=== PATIENT | female | born 1940 | race Caucasian/White ===

== ENCOUNTER → 2017-10-01 | Outpatient (CLI) | payer MEDICARE, OTHER ==
[2017-10-01 11:17] LABS: ADD MAN DIFF? NO
[2017-10-01 11:22] LABS: WHITE BLOOD COUNT 4.9 10^3/ul (4.8-10.8)
[2017-10-01 11:22] LABS: BASOPHIL # 0.1 10^3/ul (0.0-0.1); EOSINOPHILS % 0.8 % (0.0-7.0); HEMATOCRIT 36.6 % (37.0-47.0); LYMPHOCYTES # 1.6 10^3/ul (0.8-2.9); LYMPHOCYTES % 32.3 % (15.0-51.0); MEAN CORPUSCULAR HEMOGLOBIN 29.2 pg (29.0-33.0); MEAN CORPUSCULAR HGB CONC 32.8 g/dl (32.0-37.0); MEAN CORPUSCULAR VOLUME 89.1 fl (82.0-101.0); MEAN PLATELET VOLUME 9.9 fl (7.4-10.4); MONOCYTE # 0.4 10^3/ul (0.3-0.9); MONOCYTES % 8.6 % (0.0-11.0); NEUTROPHIL # 2.8 10^3/ul (1.6-7.5); NEUTROPHILS % 57.3 % (39.0-77.0); PLATELET COUNT 258 10^3/UL (140-415); RED BLOOD COUNT 4.11 10^6/ul (4.20-5.40); RED CELL DISTRIBUTION WIDTH 12.5 % (11.5-14.5)
[2017-10-01 11:23] LABS: ADD UMIC NO; UR ASCORBIC ACID NEGATIVE (NEGATIVE); UR BILIRUBIN (Dip) NEGATIVE (NEGATIVE); UR BLOOD (Dip) NEGATIVE (NEGATIVE); UR CLARITY CLEAR (CLEAR); UR COLOR YELLOW (YELLOW); UR GLUCOSE (Dip) NEGATIVE (NEGATIVE); UR KETONES (Dip) NEGATIVE (NEGATIVE); UR LEUKOCYTE ESTERASE (Dip) NEGATIVE Leu/ul (NEGATIVE); UR NITRITE (Dip) NEGATIVE (NEGATIVE); UR SPECIFIC GRAVITY (Dip) 1.013 (1.003-1.030); UR TOTAL PROTEIN (Dip) NEGATIVE (NEGATIVE); UR UROBILINOGEN (Dip) NEGATIVE (NEGATIVE)
[2017-10-01 11:36] LABS: HEMOGLOBIN A1C 5.5 % (0-5.9)
[2017-10-01 11:50] LABS: ALANINE AMINOTRANSFERASE 27 IU/L (13-69); ALBUMIN 4.5 g/dl (3.3-4.9); ALBUMIN/GLOBULIN RATIO 1.55; ALKALINE PHOSPHATASE 67 IU/L (42-121); ANION GAP 15 (8-16); ASPARTATE AMINO TRANSFERASE 18 IU/L (15-46); BILIRUBIN,INDIRECT 0.1 mg/dl (0-1.1); BILIRUBIN,TOTAL 0.1 mg/dl (0.2-1.3); BLOOD UREA NITROGEN 18 mg/dl (7-20); CALCIUM 9.6 mg/dl (8.4-10.2); CARBON DIOXIDE 29 mmol/L (21-31); CHLORIDE 106 mmol/L (97-110); CHOL/HDL RATIO 2.6 RATIO; CHOLESTEROL 166 mg/dl (100-200); CREATININE 0.95 mg/dl (0.44-1.00); GLUCOSE 101 mg/dl (70-220); HDL CHOLESTEROL 63 mg/dl (33-92); LDL CHOLESTEROL,CALCULATED 67 mg/dl; SODIUM 146 mmol/L (135-144); TOTAL PROTEIN 7.4 g/dl (6.1-8.1); TRIGLYCERIDES 178 mg/dl (0-149)
== END | disposition home or self-care (01) ==
LOC: HKI 10:48
DX: N39.0 Urinary tract infection, site not specified (principal); D64.9 Anemia, unspecified; E03.9 Hypothyroidism, unspecified; E78.5 Hyperlipidemia, unspecified
CPT/HCPCS: 80053; 80061; 81003; 83036; 84436; 84443; 85025; 85651

== ENCOUNTER 2017-11-03 12:26 | Emergency (ER) | payer MEDICARE, OTHER ==
[2017-11-03] MEDS: SOD CHLORIDE 0.9% 1,000 ML IV (13:21)
[2017-11-03] MEDS: ONDANSETRON 4 MG INJ IV (13:21)
[2017-11-03] MEDS: KETOROLAC 15 MG INJ IV (13:21)
[2017-11-03 13:49] LABS: ADD MAN DIFF? NO
[2017-11-03 13:52] LABS: WHITE BLOOD COUNT 6.9 10^3/ul (4.8-10.8)
[2017-11-03 13:52] LABS: BASOPHILS % 0.6 % (0.0-2.0); EOSINOPHILS % 0.4 % (0.0-7.0); HEMATOCRIT 35.7 % (37.0-47.0); HEMOGLOBIN 11.6 g/dl (12.0-16.0); LYMPHOCYTES # 1.8 10^3/ul (0.8-2.9); LYMPHOCYTES % 25.6 % (15.0-51.0); MEAN CORPUSCULAR HEMOGLOBIN 28.6 pg (29.0-33.0); MEAN CORPUSCULAR HGB CONC 32.5 g/dl (32.0-37.0); MEAN CORPUSCULAR VOLUME 87.9 fl (82.0-101.0); MEAN PLATELET VOLUME 10.6 fl (7.4-10.4); MONOCYTE # 0.6 10^3/ul (0.3-0.9); MONOCYTES % 8.6 % (0.0-11.0); NEUTROPHIL # 4.4 10^3/ul (1.6-7.5); NEUTROPHILS % 64.4 % (39.0-77.0); PLATELET COUNT 288 10^3/UL (140-415); RED BLOOD COUNT 4.06 10^6/ul (4.20-5.40); RED CELL DISTRIBUTION WIDTH 12.1 % (11.5-14.5)
[2017-11-03 14:05] LABS: ADD UMIC NO; UR ASCORBIC ACID NEGATIVE (NEGATIVE); UR BILIRUBIN (Dip) NEGATIVE (NEGATIVE); UR BLOOD (Dip) NEGATIVE (NEGATIVE); UR CLARITY CLEAR (CLEAR); UR COLOR STRAW (YELLOW); UR GLUCOSE (Dip) NEGATIVE (NEGATIVE); UR KETONES (Dip) NEGATIVE (NEGATIVE); UR LEUKOCYTE ESTERASE (Dip) NEGATIVE Leu/ul (NEGATIVE); UR NITRITE (Dip) NEGATIVE (NEGATIVE); UR SPECIFIC GRAVITY (Dip) 1.008 (1.003-1.030); UR TOTAL PROTEIN (Dip) NEGATIVE (NEGATIVE); UR UROBILINOGEN (Dip) NEGATIVE (NEGATIVE)
[2017-11-03 14:11] LABS: ALANINE AMINOTRANSFERASE 19 IU/L (13-69); ALBUMIN 4.7 g/dl (3.3-4.9); ALBUMIN/GLOBULIN RATIO 1.74; ALKALINE PHOSPHATASE 70 IU/L (42-121); ANION GAP 21 (8-16); ASPARTATE AMINO TRANSFERASE 15 IU/L (15-46); BLOOD UREA NITROGEN 15 mg/dl (7-20); CALCIUM 9.9 mg/dl (8.4-10.2); CARBON DIOXIDE 28 mmol/L (21-31); CHLORIDE 105 mmol/L (97-110); CREATININE 0.93 mg/dl (0.44-1.00); GLUCOSE 109 mg/dl (70-220); LIPASE 114 U/L (23-300); POTASSIUM 4.7 mmol/L (3.5-5.1); SODIUM 149 mmol/L (135-144); TOTAL PROTEIN 7.4 g/dl (6.1-8.1)
[2017-11-03 14:24] LABS: TROPONIN-I < 0.012 ng/ml (0.00-0.12)
[2017-11-03] MEDS: ALPRAZOLAM 1 MG TAB PO (16:03)
== END 2017-11-03 16:15 | disposition home or self-care (01) ==
LOC: E/R 12:26
DX: R32 Unspecified urinary incontinence (principal); R29.0 Tetany; I10 Essential (primary) hypertension; E66.9 Obesity, unspecified; Z68.26 Body mass index [BMI] 26.0-26.9, adult
CPT/HCPCS: 36415; 74176; 80053; 81003; 83690; 84484; 85025; 87086; 93005; 96374; 96375; 99285-25

== ENCOUNTER 2018-01-08 20:59 | Emergency (ER) | payer MEDICARE, OTHER ==
[2018-01-08] MEDS: ASPIRIN 325 MG TAB PO (21:18)
[2018-01-08 21:34] LABS: ADD MAN DIFF? NO
[2018-01-08 21:36] LABS: WHITE BLOOD COUNT 5.9 10^3/ul (4.8-10.8)
[2018-01-08 21:36] LABS: BASOPHIL # 0.1 10^3/ul (0.0-0.1); BASOPHILS % 0.9 % (0.0-2.0); EOSINOPHILS # 0.1 10^3/ul (0.0-0.5); HEMATOCRIT 32.8 % (37.0-47.0); HEMOGLOBIN 10.4 g/dl (12.0-16.0); LYMPHOCYTES # 2.3 10^3/ul (0.8-2.9); LYMPHOCYTES % 39.9 % (15.0-51.0); MEAN CORPUSCULAR HEMOGLOBIN 28.3 pg (29.0-33.0); MEAN CORPUSCULAR HGB CONC 31.7 g/dl (32.0-37.0); MEAN CORPUSCULAR VOLUME 89.1 fl (82.0-101.0); MEAN PLATELET VOLUME 10.3 fl (7.4-10.4); MONOCYTE # 0.5 10^3/ul (0.3-0.9); MONOCYTES % 9.2 % (0.0-11.0); NEUTROPHIL # 2.9 10^3/ul (1.6-7.5); NEUTROPHILS % 48.8 % (39.0-77.0); PLATELET COUNT 313 10^3/UL (140-415); RED BLOOD COUNT 3.68 10^6/ul (4.20-5.40); RED CELL DISTRIBUTION WIDTH 13.7 % (11.5-14.5)
[2018-01-08 21:54] LABS: ALANINE AMINOTRANSFERASE 16 IU/L (13-69); ALBUMIN 4.2 g/dl (3.3-4.9); ALKALINE PHOSPHATASE 97 IU/L (42-121); ANION GAP 17 (8-16); ASPARTATE AMINO TRANSFERASE 17 IU/L (15-46); BILIRUBIN,INDIRECT 0.1 mg/dl (0-1.1); BILIRUBIN,TOTAL 0.1 mg/dl (0.2-1.3); BLOOD UREA NITROGEN 16 mg/dl (7-20); CALCIUM 9.5 mg/dl (8.4-10.2); CARBON DIOXIDE 24 mmol/L (21-31); CHLORIDE 110 mmol/L (97-110); CREATININE 0.94 mg/dl (0.44-1.00); GLUCOSE 116 mg/dl (70-220); POTASSIUM 4.5 mmol/L (3.5-5.1); SODIUM 146 mmol/L (135-144); TOTAL PROTEIN 7.2 g/dl (6.1-8.1)
[2018-01-08 21:55] LABS: INR 0.92; PROTIME 12.4 Sec (11.9-14.9)
[2018-01-08 21:56] LABS: PARTIAL THROMBOPLASTIN TIME 28.6 Sec (25.0-35.0)
[2018-01-08 22:09] LABS: B-TYPE NATRIURETIC PEPTIDE 395 PG/ML (0-450)
[2018-01-08 22:14] LABS: TROPONIN-I < 0.012 ng/ml (0.000-0.120)
== END 2018-01-08 23:18 | disposition home or self-care (01) ==
LOC: E/R 20:59
DX: M94.0 Chondrocostal junction syndrome [Tietze] (principal); R00.2 Palpitations; I10 Essential (primary) hypertension
CPT/HCPCS: 36415; 71045; 80053; 83880; 84484; 85025; 85610; 85730; 93005; 99285-25

== ENCOUNTER 2018-01-29 12:59 | Inpatient (IN) | payer MEDICARE, OTHER ==
[2018-01-29 13:27] LABS: ABNORMAL IP MESSAGE 1; HEMATOCRIT 37.9 % (37.0-47.0); HEMOGLOBIN 11.9 g/dl (12.0-16.0); MEAN CORPUSCULAR HEMOGLOBIN 28.5 pg (29.0-33.0); MEAN CORPUSCULAR HGB CONC 31.4 g/dl (32.0-37.0); MEAN CORPUSCULAR VOLUME 90.9 fl (82.0-101.0); MEAN PLATELET VOLUME 10.2 fl (7.4-10.4); PLATELET COUNT 233 10^3/UL (140-415); RED BLOOD COUNT 4.17 10^6/ul (4.20-5.40); RED CELL DISTRIBUTION WIDTH 12.8 % (11.5-14.5)
[2018-01-29 13:27] LABS: WHITE BLOOD COUNT 4.6 10^3/ul (4.8-10.8)
[2018-01-29 13:29] LABS: ADD MAN DIFF? YES; POSITIVE DIFF @See below
[2018-01-29] MEDS: SOD CHLORIDE 0.9% 1,000 ML IV (13:42)
[2018-01-29 13:57] LABS: AMMONIA < 9 umol/l (9-30)
[2018-01-29 14:05] LABS: ANISOCYTOSIS 1+ (0-0); BAND NEUTROPHILS #M 1.3 10^3/ul (0.0-0.6); BAND NEUTROPHILS % (M) 29 % (0-4); LYMPHOCYTES #M 0.2 10^3/ul (0.8-2.9); LYMPHOCYTES % (M) 5 % (15-51); METAMYELOCYTES %M 1 % (0-0); MONOCYTE #M 0.2 10^3/ul (0.3-0.9); MONOCYTES % (M) 5 % (0-11); PLATELET ESTIMATE NORMAL; POLYCHROMASIA 1+ (0-0); REACTIVE LYMPHOCYTES% (M) 1 % (0-0); SEG NEUT #M 2.8 10^3/ul (1.6-7.5); SEGMENTED NEUTROPHILS (M) % 59 % (39-77); SMUDGE%M 1 % (0-0)
[2018-01-29] MEDS: CEFTRIAXONE 1 GM/50 ML (PMX) 50 ML IVPB (14:15)
[2018-01-29 14:31] LABS: ACETAMINOPHEN < 10.0 ug/ml (10.0-30.0)
[2018-01-29] MEDS: AZITHROMYCIN 500MG/NS (PMX) 250 ML IVPB (14:32)
[2018-01-29 14:47] LABS: SALICYLATE < 1.0 mg/dl (5.0-30.0)
[2018-01-29 15:09] LABS: ADD UMIC YES; UR ASCORBIC ACID NEGATIVE (NEGATIVE); UR BACTERIA FEW /HPF (NONE SEEN); UR BILIRUBIN (Dip) NEGATIVE (NEGATIVE); UR BLOOD (Dip) NEGATIVE (NEGATIVE); UR CLARITY SLIGHTLY CLOUDY (CLEAR); UR COLOR YELLOW (YELLOW); UR GLUCOSE (Dip) NEGATIVE (NEGATIVE); UR KETONES (Dip) NEGATIVE (NEGATIVE); UR LEUKOCYTE ESTERASE (Dip) 1+ Leu/ul (NEGATIVE); UR NITRITE (Dip) POSITIVE (NEGATIVE); UR RBC 1 /HPF (0-5); UR SPECIFIC GRAVITY (Dip) 1.025 (1.003-1.030); UR SQUAMOUS EPITHELIAL CELL FEW /HPF (FEW); UR TOTAL PROTEIN (Dip) NEGATIVE (NEGATIVE); UR UROBILINOGEN (Dip) NEGATIVE (NEGATIVE); UR WBC 13 /HPF (0-5)
[2018-01-29 15:12] LABS: ALANINE AMINOTRANSFERASE 23 IU/L (13-69); ALBUMIN/GLOBULIN RATIO 1.37; ALKALINE PHOSPHATASE 66 IU/L (42-121); ANION GAP 16 (8-16); ASPARTATE AMINO TRANSFERASE 24 IU/L (15-46); BILIRUBIN,INDIRECT 0.3 mg/dl (0-1.1); BILIRUBIN,TOTAL 0.3 mg/dl (0.2-1.3); BLOOD UREA NITROGEN 21 mg/dl (7-20); CARBON DIOXIDE 20 mmol/L (21-31); CHLORIDE 109 mmol/L (97-110); CREATININE 0.93 mg/dl (0.44-1.00); GLUCOSE 149 mg/dl (70-220); POTASSIUM 4.3 mmol/L (3.5-5.1); SODIUM 141 mmol/L (135-144); TOTAL PROTEIN 6.9 g/dl (6.1-8.1)
[2018-01-29 15:13] LABS: ETHANOL < 10.0 mg/dl
[2018-01-29 15:24] LABS: TROPONIN-I < 0.012 ng/ml (0.000-0.120)
[2018-01-29 15:35] LABS: AMPHETAMINE/METHAMPHETAMINE Negative (NEGATIVE); BENZODIAZEPINES Positive (NEGATIVE); CANNABINOIDS Negative (NEGATIVE); OPIATES Negative (NEGATIVE)
[2018-01-29 15:37] LABS: BARBITURATES Negative (NEGATIVE); COCAINE Negative (NEGATIVE)
[2018-01-29] MEDS: SODIUM CHLORIDE 0.9% 1L BAG IV* (15:57)
[2018-01-29] MEDS ORDERED: ACETAMINOPHEN 325 MG TAB PO (16:30)
[2018-01-29] MEDS ORDERED: ONDANSETRON 4 MG INJ IV (16:30)
[2018-01-29 16:46] LABS: LACTIC ACID 2.3 mmol/L (0.5-2.0)
[2018-01-29] MEDS ORDERED: ALBUTEROL 0.083% (NEB) 2.5 MG/3 ML AMP HHN (18:30)
[2018-01-29] MEDS: DEXTROSE 5%-0.225% NACL 1,000 ML IV (18:57)
[2018-01-29 19:10] LABS: LACTIC ACID 1.9 mmol/L (0.5-2.0)
[2018-01-29] MEDS: ONDANSETRON 4 MG INJ IV (21:21)
[2018-01-29] MEDS: DOCUSATE SODIUM 250 MG CAP PO (21:21)
[2018-01-29] MEDS: OLANZAPINE 2.5 MG TAB PO (21:25)
[2018-01-29] MEDS: MIRTAZAPINE 15 MG TAB PO (21:26)
[2018-01-29 22:28] LABS: LACTIC ACID 2.1 mmol/L (0.5-2.0)
[2018-01-30] MEDS: PANTOPRAZOLE (EC) 40 MG TAB PO (05:11)
[2018-01-30] MEDS: DEXTROSE 5%-0.225% NACL 1,000 ML IV ×2 (05:11→17:30)
[2018-01-30 06:39] LABS: ABNORMAL IP MESSAGE 1; HEMATOCRIT 31.3 % (37.0-47.0); HEMOGLOBIN 9.7 g/dl (12.0-16.0); MEAN CORPUSCULAR HEMOGLOBIN 28.2 pg (29.0-33.0); MEAN PLATELET VOLUME 10.6 fl (7.4-10.4); PLATELET COUNT 205 10^3/UL (140-415); RED BLOOD COUNT 3.44 10^6/ul (4.20-5.40); RED CELL DISTRIBUTION WIDTH 13.2 % (11.5-14.5)
[2018-01-30 06:46] LABS: ADD MAN DIFF? YES; POSITIVE DIFF @See below
[2018-01-30 07:00] LABS: LACTIC ACID 1.6 mmol/L (0.5-2.0)
[2018-01-30 07:03] LABS: ANION GAP 11 (8-16); BLOOD UREA NITROGEN 18 mg/dl (7-20); CALCIUM 8.7 mg/dl (8.4-10.2); CARBON DIOXIDE 25 mmol/L (21-31); CHLORIDE 111 mmol/L (97-110); CREATININE 0.87 mg/dl (0.44-1.00); GLUCOSE 134 mg/dl (70-220); POTASSIUM 4.7 mmol/L (3.5-5.1); SODIUM 142 mmol/L (135-144)
[2018-01-30 08:10] LABS: ANISOCYTOSIS 2+ (0-0); BAND NEUTROPHILS #M 4.8 10^3/ul (0.0-0.6); BAND NEUTROPHILS % (M) 37 % (0-4); LYMPHOCYTES #M 1.1 10^3/ul (0.8-2.9); LYMPHOCYTES % (M) 9 % (15-51); MICROCYTOSIS 2+ (0-0); MONOCYTE #M 0.9 10^3/ul (0.3-0.9); MONOCYTES % (M) 7 % (0-11); PLATELET ESTIMATE NORMAL; POIKILOCYTOSIS 1+ (0-0); POLYCHROMASIA 3+ (0-0); SEG NEUT #M 6.7 10^3/ul (1.6-7.5); SEGMENTED NEUTROPHILS (M) % 47 % (39-77); SMUDGE%M 2 % (0-0)
[2018-01-30] MEDS: SOLIFENACIN 5 MG TAB PO (08:34)
[2018-01-30] MEDS: DOCUSATE SODIUM 250 MG CAP PO ×2 (08:34→20:38)
[2018-01-30] MEDS: ATENOLOL 50 MG TAB PO (08:35)
[2018-01-30] MEDS: SERTRALINE 50 MG TAB PO (08:35)
[2018-01-30] MEDS: LISINOPRIL 10 MG TAB PO (08:35)
[2018-01-30] MEDS: CEFTRIAXONE 1 GM/50 ML (PMX) 50 ML IVPB (13:00)
[2018-01-30] MEDS: AZITHROMYCIN 500MG/NS (PMX) 250 ML IVPB (13:33)
[2018-01-30] MEDS: traZODone 50 MG TAB PO (17:30)
[2018-01-30] MEDS: traZODone 100 MG TAB PO (20:38)
[2018-01-30] MEDS: OLANZAPINE 2.5 MG TAB PO (20:38)
[2018-01-31] MEDS: DEXTROSE 5%-0.225% NACL 1,000 ML IV ×3 (00:38→22:01)
[2018-01-31] MEDS: traZODone 50 MG TAB PO ×2 (00:50→21:56)
[2018-01-31] MEDS: PANTOPRAZOLE (EC) 40 MG TAB PO (05:13)
[2018-01-31 06:54] LABS: WHITE BLOOD COUNT 11.5 10^3/ul (4.8-10.8)
[2018-01-31 06:54] LABS: HEMATOCRIT 29.5 % (37.0-47.0); HEMOGLOBIN 9.4 g/dl (12.0-16.0); MEAN CORPUSCULAR HEMOGLOBIN 28.7 pg (29.0-33.0); MEAN CORPUSCULAR HGB CONC 31.9 g/dl (32.0-37.0); MEAN CORPUSCULAR VOLUME 90.2 fl (82.0-101.0); MEAN PLATELET VOLUME 11.1 fl (7.4-10.4); PLATELET COUNT 216 10^3/UL (140-415); RED BLOOD COUNT 3.27 10^6/ul (4.20-5.40); RED CELL DISTRIBUTION WIDTH 13.3 % (11.5-14.5)
[2018-01-31 07:14] LABS: ANION GAP 8 (8-16); BLOOD UREA NITROGEN 14 mg/dl (7-20); CALCIUM 8.9 mg/dl (8.4-10.2); CARBON DIOXIDE 27 mmol/L (21-31); CHLORIDE 112 mmol/L (97-110); CREATININE 0.94 mg/dl (0.44-1.00); GLUCOSE 110 mg/dl (70-220); MAGNESIUM 1.8 mg/dl (1.7-2.5); POTASSIUM 3.8 mmol/L (3.5-5.1); SODIUM 143 mmol/L (135-144)
[2018-01-31 07:15] LABS: ADD MAN DIFF? YES; POSITIVE DIFF @See below
[2018-01-31] MEDS: LISINOPRIL 10 MG TAB PO (08:21)
[2018-01-31] MEDS: SERTRALINE 50 MG TAB PO (08:21)
[2018-01-31] MEDS: SOLIFENACIN 5 MG TAB PO (08:21)
[2018-01-31] MEDS: DOCUSATE SODIUM 250 MG CAP PO ×2 (08:21→21:56)
[2018-01-31] MEDS: ATENOLOL 50 MG TAB PO (08:22)
[2018-01-31 09:12] LABS: ANISOCYTOSIS 1+ (0-0); BAND NEUTROPHILS #M 2.1 10^3/ul (0.0-0.6); BAND NEUTROPHILS % (M) 19 % (0-4); EOSINOPHILS % (M) 1 % (0-7); LYMPHOCYTES #M 1.8 10^3/ul (0.8-2.9); LYMPHOCYTES % (M) 16 % (15-51); MICROCYTOSIS 1+ (0-0); MONOCYTE #M 0.2 10^3/ul (0.3-0.9); MONOCYTES % (M) 2 % (0-11); PLATELET ESTIMATE NORMAL; POIKILOCYTOSIS 1+ (0-0); POLYCHROMASIA 3+ (0-0); SEG NEUT #M 7.4 10^3/ul (1.6-7.5); SEGMENTED NEUTROPHILS (M) % 62 % (39-77)
[2018-01-31] MEDS: CEFTRIAXONE 1 GM/50 ML (PMX) 50 ML IVPB (13:25)
[2018-01-31] MEDS: AZITHROMYCIN 500MG/NS (PMX) 250 ML IVPB (14:14)
[2018-01-31] MEDS: OLANZAPINE 2.5 MG TAB PO (21:56)
[2018-01-31] MEDS: traZODone 100 MG TAB PO (22:00)
[2018-02-01] MEDS: traZODone 50 MG TAB PO (00:35)
[2018-02-01] MEDS: PANTOPRAZOLE (EC) 40 MG TAB PO (05:26)
[2018-02-01] MEDS: DEXTROSE 5%-0.225% NACL 1,000 ML IV ×4 (06:30→21:02)
[2018-02-01 08:04] LABS: ADD MAN DIFF? NO
[2018-02-01 08:08] LABS: BASOPHILS % 0.3 % (0.0-2.0); EOSINOPHILS # 0.1 10^3/ul (0.0-0.5); HEMATOCRIT 27.8 % (37.0-47.0); HEMOGLOBIN 8.9 g/dl (12.0-16.0); LYMPHOCYTES # 1.5 10^3/ul (0.8-2.9); LYMPHOCYTES % 16.4 % (15.0-51.0); MEAN CORPUSCULAR HEMOGLOBIN 28.5 pg (29.0-33.0); MEAN CORPUSCULAR VOLUME 89.1 fl (82.0-101.0); MEAN PLATELET VOLUME 10.9 fl (7.4-10.4); MONOCYTE # 0.5 10^3/ul (0.3-0.9); MONOCYTES % 5.5 % (0.0-11.0); NEUTROPHIL # 7.1 10^3/ul (1.6-7.5); NEUTROPHILS % 76.4 % (39.0-77.0); PLATELET COUNT 216 10^3/UL (140-415); RED BLOOD COUNT 3.12 10^6/ul (4.20-5.40); RED CELL DISTRIBUTION WIDTH 13.2 % (11.5-14.5)
[2018-02-01 08:08] LABS: WHITE BLOOD COUNT 9.3 10^3/ul (4.8-10.8)
[2018-02-01 08:12] LABS: POSITIVE DIFF @See below
[2018-02-01] MEDS: DOCUSATE SODIUM 250 MG CAP PO ×2 (08:12→21:02)
[2018-02-01] MEDS: ATENOLOL 50 MG TAB PO (08:12)
[2018-02-01] MEDS: SERTRALINE 50 MG TAB PO (08:12)
[2018-02-01] MEDS: LISINOPRIL 10 MG TAB PO (08:12)
[2018-02-01] MEDS: SOLIFENACIN 5 MG TAB PO (08:12)
[2018-02-01 08:37] LABS: ANION GAP 8 (8-16); BLOOD UREA NITROGEN 8 mg/dl (7-20); CALCIUM 8.7 mg/dl (8.4-10.2); CARBON DIOXIDE 27 mmol/L (21-31); CHLORIDE 111 mmol/L (97-110); CREATININE 0.84 mg/dl (0.44-1.00); GLUCOSE 121 mg/dl (70-220); POTASSIUM 3.4 mmol/L (3.5-5.1); SODIUM 143 mmol/L (135-144)
[2018-02-01] MEDS: CEFTRIAXONE 1 GM/50 ML (PMX) 50 ML IVPB (15:33)
[2018-02-01] MEDS: AZITHROMYCIN 500MG/NS (PMX) 250 ML IVPB (16:09)
[2018-02-01] MEDS: traZODone 100 MG TAB PO (21:02)
[2018-02-01] MEDS: OLANZAPINE 2.5 MG TAB PO (21:02)
[2018-02-02] MEDS: DEXTROSE 5%-0.225% NACL 1,000 ML IV ×3 (02:30→23:12)
[2018-02-02 06:00] LABS: ADD MAN DIFF? NO
[2018-02-02 06:05] LABS: WHITE BLOOD COUNT 7.5 10^3/ul (4.8-10.8)
[2018-02-02 06:05] LABS: BASOPHILS % 0.4 % (0.0-2.0); EOSINOPHILS # 0.1 10^3/ul (0.0-0.5); EOSINOPHILS % 1.9 % (0.0-7.0); HEMATOCRIT 28.8 % (37.0-47.0); HEMOGLOBIN 9.2 g/dl (12.0-16.0); LYMPHOCYTES # 1.5 10^3/ul (0.8-2.9); LYMPHOCYTES % 20.4 % (15.0-51.0); MEAN CORPUSCULAR HEMOGLOBIN 28.5 pg (29.0-33.0); MEAN CORPUSCULAR HGB CONC 31.9 g/dl (32.0-37.0); MEAN CORPUSCULAR VOLUME 89.2 fl (82.0-101.0); MEAN PLATELET VOLUME 10.3 fl (7.4-10.4); MONOCYTE # 0.8 10^3/ul (0.3-0.9); MONOCYTES % 11.1 % (0.0-11.0); NEUTROPHIL # 4.9 10^3/ul (1.6-7.5); NEUTROPHILS % 65.8 % (39.0-77.0); PLATELET COUNT 218 10^3/UL (140-415); RED BLOOD COUNT 3.23 10^6/ul (4.20-5.40); RED CELL DISTRIBUTION WIDTH 13.1 % (11.5-14.5)
[2018-02-02] MEDS: PANTOPRAZOLE (EC) 40 MG TAB PO (06:19)
[2018-02-02] MEDS: LISINOPRIL 10 MG TAB PO (08:41)
[2018-02-02] MEDS: ATENOLOL 50 MG TAB PO (08:42)
[2018-02-02] MEDS: DOCUSATE SODIUM 250 MG CAP PO ×2 (08:42→21:28)
[2018-02-02] MEDS: SOLIFENACIN 5 MG TAB PO (08:42)
[2018-02-02] MEDS: SERTRALINE 50 MG TAB PO (08:42)
[2018-02-02] MEDS: POTASSIUM CHLORIDE (SR) 10 MEQ TAB PO (13:33)
[2018-02-02] MEDS: CEFTRIAXONE 1 GM/50 ML (PMX) 50 ML IVPB (13:33)
[2018-02-02] MEDS: AZITHROMYCIN 500MG/NS (PMX) 250 ML IVPB (14:09)
[2018-02-02] MEDS: OLANZAPINE 2.5 MG TAB PO (21:28)
[2018-02-02] MEDS: traZODone 100 MG TAB PO (21:28)
[2018-02-02] MEDS: ACETAMINOPHEN 500 MG TAB PO (23:13)
[2018-02-03] MEDS: PANTOPRAZOLE (EC) 40 MG TAB PO (05:40)
[2018-02-03 07:13] LABS: ADD MAN DIFF? NO
[2018-02-03 07:19] LABS: BASOPHILS % 0.7 % (0.0-2.0); EOSINOPHILS # 0.2 10^3/ul (0.0-0.5); EOSINOPHILS % 2.9 % (0.0-7.0); HEMATOCRIT 30.9 % (37.0-47.0); HEMOGLOBIN 9.7 g/dl (12.0-16.0); LYMPHOCYTES # 1.2 10^3/ul (0.8-2.9); LYMPHOCYTES % 22.7 % (15.0-51.0); MEAN CORPUSCULAR HEMOGLOBIN 28.1 pg (29.0-33.0); MEAN CORPUSCULAR HGB CONC 31.4 g/dl (32.0-37.0); MEAN CORPUSCULAR VOLUME 89.6 fl (82.0-101.0); MEAN PLATELET VOLUME 10.3 fl (7.4-10.4); MONOCYTE # 0.8 10^3/ul (0.3-0.9); MONOCYTES % 15.5 % (0.0-11.0); NEUTROPHIL # 3.1 10^3/ul (1.6-7.5); NEUTROPHILS % 57.5 % (39.0-77.0); PLATELET COUNT 254 10^3/UL (140-415); RED BLOOD COUNT 3.45 10^6/ul (4.20-5.40); RED CELL DISTRIBUTION WIDTH 13.1 % (11.5-14.5)
[2018-02-03 07:19] LABS: WHITE BLOOD COUNT 5.4 10^3/ul (4.8-10.8)
[2018-02-03 07:43] LABS: ANION GAP 8 (8-16); BLOOD UREA NITROGEN 8 mg/dl (7-20); CALCIUM 9.1 mg/dl (8.4-10.2); CARBON DIOXIDE 28 mmol/L (21-31); CHLORIDE 110 mmol/L (97-110); GLUCOSE 111 mg/dl (70-220); POTASSIUM 4.2 mmol/L (3.5-5.1); SODIUM 142 mmol/L (135-144)
[2018-02-03] MEDS: DEXTROSE 5%-0.225% NACL 1,000 ML IV ×2 (08:49→18:20)
[2018-02-03] MEDS: SERTRALINE 50 MG TAB PO (08:51)
[2018-02-03] MEDS: SOLIFENACIN 5 MG TAB PO (08:51)
[2018-02-03] MEDS: DOCUSATE SODIUM 250 MG CAP PO ×2 (08:51→19:50)
[2018-02-03] MEDS: LISINOPRIL 10 MG TAB PO (08:52)
[2018-02-03] MEDS: ATENOLOL 50 MG TAB PO (08:52)
[2018-02-03 10:26] LABS: ADD UMIC YES; UR ASCORBIC ACID NEGATIVE (NEGATIVE); UR BILIRUBIN (Dip) NEGATIVE (NEGATIVE); UR BLOOD (Dip) NEGATIVE (NEGATIVE); UR CLARITY CLEAR (CLEAR); UR COLOR COLORLESS (YELLOW); UR GLUCOSE (Dip) NEGATIVE (NEGATIVE); UR KETONES (Dip) NEGATIVE (NEGATIVE); UR LEUKOCYTE ESTERASE (Dip) TRACE Leu/ul (NEGATIVE); UR NITRITE (Dip) NEGATIVE (NEGATIVE); UR RBC 0 /HPF (0-5); UR SPECIFIC GRAVITY (Dip) 1.003 (1.003-1.030); UR TOTAL PROTEIN (Dip) NEGATIVE (NEGATIVE); UR UROBILINOGEN (Dip) NEGATIVE (NEGATIVE); UR WBC 2 /HPF (0-5)
[2018-02-03] MEDS: CEFTRIAXONE 1 GM/50 ML (PMX) 50 ML IVPB (13:06)
[2018-02-03] MEDS: AZITHROMYCIN 500MG/NS (PMX) 250 ML IVPB (14:06)
[2018-02-03] MEDS: OLANZAPINE 2.5 MG TAB PO (19:50)
[2018-02-03] MEDS: traZODone 100 MG TAB PO (19:50)
[2018-02-04] MEDS: DEXTROSE 5%-0.225% NACL 1,000 ML IV ×3 (04:42→15:12)
[2018-02-04] MEDS: PANTOPRAZOLE (EC) 40 MG TAB PO (05:40)
[2018-02-04 06:10] LABS: ADD MAN DIFF? NO
[2018-02-04 06:26] LABS: WHITE BLOOD COUNT 5.9 10^3/ul (4.8-10.8)
[2018-02-04 06:26] LABS: BASOPHILS % 0.7 % (0.0-2.0); EOSINOPHILS # 0.1 10^3/ul (0.0-0.5); HEMATOCRIT 29.4 % (37.0-47.0); HEMOGLOBIN 9.4 g/dl (12.0-16.0); LYMPHOCYTES # 1.3 10^3/ul (0.8-2.9); LYMPHOCYTES % 21.5 % (15.0-51.0); MEAN CORPUSCULAR VOLUME 87.5 fl (82.0-101.0); MEAN PLATELET VOLUME 10.4 fl (7.4-10.4); MONOCYTE # 0.8 10^3/ul (0.3-0.9); MONOCYTES % 13.7 % (0.0-11.0); NEUTROPHIL # 3.6 10^3/ul (1.6-7.5); NEUTROPHILS % 61.8 % (39.0-77.0); PLATELET COUNT 270 10^3/UL (140-415); RED BLOOD COUNT 3.36 10^6/ul (4.20-5.40)
[2018-02-04 06:51] LABS: LIPASE 182 U/L (23-300)
[2018-02-04 06:53] LABS: ALANINE AMINOTRANSFERASE 109 IU/L (13-69); ALBUMIN 3.2 g/dl (3.3-4.9); ALKALINE PHOSPHATASE 81 IU/L (42-121); ANION GAP 13 (8-16); ASPARTATE AMINO TRANSFERASE 69 IU/L (15-46); BILIRUBIN,INDIRECT 0.4 mg/dl (0-1.1); BILIRUBIN,TOTAL 0.4 mg/dl (0.2-1.3); BLOOD UREA NITROGEN 8 mg/dl (7-20); CARBON DIOXIDE 27 mmol/L (21-31); CHLORIDE 108 mmol/L (97-110); CREATININE 0.84 mg/dl (0.44-1.00); GLUCOSE 111 mg/dl (70-220); POTASSIUM 3.8 mmol/L (3.5-5.1); SODIUM 144 mmol/L (135-144); TOTAL PROTEIN 6.4 g/dl (6.1-8.1)
[2018-02-04] MEDS: CEFPODOXIME 200 MG TAB PO ×2 (09:09→20:34)
[2018-02-04] MEDS: ATENOLOL 50 MG TAB PO (09:09)
[2018-02-04] MEDS: DOCUSATE SODIUM 250 MG CAP PO ×2 (09:09→20:42)
[2018-02-04] MEDS: LISINOPRIL 10 MG TAB PO (09:09)
[2018-02-04] MEDS: SOLIFENACIN 5 MG TAB PO (09:09)
[2018-02-04] MEDS: SERTRALINE 50 MG TAB PO (09:10)
[2018-02-04] MEDS ORDERED: ACETAMINOPHEN 500 MG TAB PO (15:30)
[2018-02-04] MEDS: OLANZAPINE 2.5 MG TAB PO (20:34)
[2018-02-04] MEDS: traZODone 100 MG TAB PO (20:39)
[2018-02-05] MEDS: ACETAMINOPHEN 500 MG TAB PO ×3 (00:20→21:17)
[2018-02-05] MEDS: PANTOPRAZOLE (EC) 40 MG TAB PO (05:58)
[2018-02-05] MEDS: LISINOPRIL 10 MG TAB PO (08:39)
[2018-02-05] MEDS: DOCUSATE SODIUM 250 MG CAP PO ×2 (08:39→21:18)
[2018-02-05] MEDS: SOLIFENACIN 5 MG TAB PO (08:39)
[2018-02-05] MEDS: CEFPODOXIME 200 MG TAB PO ×2 (08:39→21:18)
[2018-02-05] MEDS: ATENOLOL 50 MG TAB PO (08:40)
[2018-02-05 08:44] LABS: ADD MAN DIFF? NO
[2018-02-05 08:48] LABS: BASOPHILS % 0.7 % (0.0-2.0); EOSINOPHILS # 0.1 10^3/ul (0.0-0.5); EOSINOPHILS % 2.2 % (0.0-7.0); HEMATOCRIT 30.1 % (37.0-47.0); HEMOGLOBIN 9.5 g/dl (12.0-16.0); LYMPHOCYTES # 1.3 10^3/ul (0.8-2.9); LYMPHOCYTES % 23.2 % (15.0-51.0); MEAN CORPUSCULAR HEMOGLOBIN 27.8 pg (29.0-33.0); MEAN CORPUSCULAR HGB CONC 31.6 g/dl (32.0-37.0); MEAN PLATELET VOLUME 10.4 fl (7.4-10.4); MONOCYTE # 0.7 10^3/ul (0.3-0.9); MONOCYTES % 11.7 % (0.0-11.0); NEUTROPHIL # 3.4 10^3/ul (1.6-7.5); NEUTROPHILS % 61.5 % (39.0-77.0); PLATELET COUNT 302 10^3/UL (140-415); RED BLOOD COUNT 3.42 10^6/ul (4.20-5.40); RED CELL DISTRIBUTION WIDTH 13.1 % (11.5-14.5)
[2018-02-05 08:48] LABS: WHITE BLOOD COUNT 5.6 10^3/ul (4.8-10.8)
[2018-02-05 09:09] LABS: ALANINE AMINOTRANSFERASE 88 IU/L (13-69); ALBUMIN 3.4 g/dl (3.3-4.9); ALBUMIN/GLOBULIN RATIO 1.17; ALKALINE PHOSPHATASE 78 IU/L (42-121); ANION GAP 15 (8-16); ASPARTATE AMINO TRANSFERASE 41 IU/L (15-46); BILIRUBIN,INDIRECT 0.3 mg/dl (0-1.1); BILIRUBIN,TOTAL 0.3 mg/dl (0.2-1.3); BLOOD UREA NITROGEN 7 mg/dl (7-20); CARBON DIOXIDE 29 mmol/L (21-31); CHLORIDE 103 mmol/L (97-110); CREATININE 0.88 mg/dl (0.44-1.00); GLUCOSE 106 mg/dl (70-220); POTASSIUM 3.9 mmol/L (3.5-5.1); SODIUM 143 mmol/L (135-144); TOTAL PROTEIN 6.3 g/dl (6.1-8.1)
[2018-02-05 09:11] LABS: MAGNESIUM 1.9 mg/dl (1.7-2.5)
[2018-02-05] MEDS: OLANZAPINE 2.5 MG TAB PO (21:18)
[2018-02-05] MEDS: traZODone 100 MG TAB PO (21:21)
[2018-02-06] MEDS: PANTOPRAZOLE (EC) 40 MG TAB PO (05:46)
[2018-02-06 07:04] LABS: ADD MAN DIFF? NO
[2018-02-06 07:13] LABS: WHITE BLOOD COUNT 6.7 10^3/ul (4.8-10.8)
[2018-02-06 07:13] LABS: BASOPHIL # 0.1 10^3/ul (0.0-0.1); BASOPHILS % 0.7 % (0.0-2.0); EOSINOPHILS # 0.1 10^3/ul (0.0-0.5); EOSINOPHILS % 1.5 % (0.0-7.0); HEMATOCRIT 31.8 % (37.0-47.0); HEMOGLOBIN 9.8 g/dl (12.0-16.0); LYMPHOCYTES # 1.3 10^3/ul (0.8-2.9); LYMPHOCYTES % 18.8 % (15.0-51.0); MEAN CORPUSCULAR HEMOGLOBIN 27.2 pg (29.0-33.0); MEAN CORPUSCULAR HGB CONC 30.8 g/dl (32.0-37.0); MEAN CORPUSCULAR VOLUME 88.3 fl (82.0-101.0); MEAN PLATELET VOLUME 10.3 fl (7.4-10.4); MONOCYTE # 0.5 10^3/ul (0.3-0.9); MONOCYTES % 7.2 % (0.0-11.0); NEUTROPHIL # 4.8 10^3/ul (1.6-7.5); NEUTROPHILS % 71.2 % (39.0-77.0); PLATELET COUNT 366 10^3/UL (140-415); RED CELL DISTRIBUTION WIDTH 12.8 % (11.5-14.5)
[2018-02-06 07:48] LABS: ALANINE AMINOTRANSFERASE 212 IU/L (13-69); ALBUMIN 3.7 g/dl (3.3-4.9); ALBUMIN/GLOBULIN RATIO 1.19; ALKALINE PHOSPHATASE 148 IU/L (42-121); ANION GAP 14 (8-16); ASPARTATE AMINO TRANSFERASE 154 IU/L (15-46); BILIRUBIN,INDIRECT 0.3 mg/dl (0-1.1); BILIRUBIN,TOTAL 0.3 mg/dl (0.2-1.3); BLOOD UREA NITROGEN 10 mg/dl (7-20); CALCIUM 9.2 mg/dl (8.4-10.2); CARBON DIOXIDE 31 mmol/L (21-31); CHLORIDE 103 mmol/L (97-110); CREATININE 0.97 mg/dl (0.44-1.00); GLUCOSE 102 mg/dl (70-220); POTASSIUM 4.3 mmol/L (3.5-5.1); SODIUM 144 mmol/L (135-144); TOTAL PROTEIN 6.8 g/dl (6.1-8.1)
[2018-02-06] MEDS: LISINOPRIL 10 MG TAB PO (08:38)
[2018-02-06] MEDS: ATENOLOL 50 MG TAB PO (08:38)
[2018-02-06] MEDS: SOLIFENACIN 5 MG TAB PO (08:38)
[2018-02-06] MEDS: DOCUSATE SODIUM 250 MG CAP PO ×2 (08:38→20:29)
[2018-02-06] MEDS: ENOXAPARIN 30 MG/0.3 ML SYG SC (14:17)
[2018-02-06] MEDS: OLANZAPINE 2.5 MG TAB PO (20:43)
[2018-02-06] MEDS: traZODone 100 MG TAB PO (20:43)
[2018-02-07] MEDS: PANTOPRAZOLE (EC) 40 MG TAB PO (05:24)
[2018-02-07 06:59] LABS: ADD MAN DIFF? NO
[2018-02-07 07:09] LABS: BASOPHIL # 0.1 10^3/ul (0.0-0.1); BASOPHILS % 0.9 % (0.0-2.0); EOSINOPHILS # 0.1 10^3/ul (0.0-0.5); EOSINOPHILS % 1.8 % (0.0-7.0); HEMOGLOBIN 9.5 g/dl (12.0-16.0); LYMPHOCYTES # 1.5 10^3/ul (0.8-2.9); LYMPHOCYTES % 27.4 % (15.0-51.0); MEAN CORPUSCULAR HGB CONC 31.7 g/dl (32.0-37.0); MEAN CORPUSCULAR VOLUME 88.5 fl (82.0-101.0); MEAN PLATELET VOLUME 10.3 fl (7.4-10.4); MONOCYTE # 0.5 10^3/ul (0.3-0.9); MONOCYTES % 8.7 % (0.0-11.0); NEUTROPHIL # 3.4 10^3/ul (1.6-7.5); NEUTROPHILS % 60.8 % (39.0-77.0); PLATELET COUNT 419 10^3/UL (140-415); RED BLOOD COUNT 3.39 10^6/ul (4.20-5.40); RED CELL DISTRIBUTION WIDTH 13.1 % (11.5-14.5)
[2018-02-07 07:09] LABS: WHITE BLOOD COUNT 5.6 10^3/ul (4.8-10.8)
[2018-02-07 07:28] LABS: ALANINE AMINOTRANSFERASE 168 IU/L (13-69); ALBUMIN 3.6 g/dl (3.3-4.9); ALBUMIN/GLOBULIN RATIO 1.28; ALKALINE PHOSPHATASE 126 IU/L (42-121); ANION GAP 13 (8-16); ASPARTATE AMINO TRANSFERASE 89 IU/L (15-46); BILIRUBIN,INDIRECT 0.2 mg/dl (0-1.1); BILIRUBIN,TOTAL 0.2 mg/dl (0.2-1.3); BLOOD UREA NITROGEN 13 mg/dl (7-20); CALCIUM 9.1 mg/dl (8.4-10.2); CARBON DIOXIDE 31 mmol/L (21-31); CHLORIDE 104 mmol/L (97-110); CREATININE 1.02 mg/dl (0.44-1.00); GLUCOSE 97 mg/dl (70-220); POTASSIUM 4.2 mmol/L (3.5-5.1); SODIUM 144 mmol/L (135-144); TOTAL PROTEIN 6.4 g/dl (6.1-8.1)
[2018-02-07 07:30] LABS: AMYLASE 80 U/L (11-123)
[2018-02-07] MEDS: SOLIFENACIN 5 MG TAB PO (08:54)
[2018-02-07] MEDS: LISINOPRIL 10 MG TAB PO (08:55)
[2018-02-07] MEDS: DOCUSATE SODIUM 250 MG CAP PO ×2 (08:55→20:15)
[2018-02-07] MEDS: ATENOLOL 50 MG TAB PO (08:55)
[2018-02-07] MEDS: ENOXAPARIN 30 MG/0.3 ML SYG SC (08:56)
[2018-02-07] MEDS: traZODone 50 MG TAB PO (20:15)
[2018-02-07] MEDS: OLANZAPINE 2.5 MG TAB PO (20:16)
[2018-02-07] MEDS: traZODone 100 MG TAB PO (20:19)
[2018-02-08] MEDS: PANTOPRAZOLE (EC) 40 MG TAB PO (05:37)
[2018-02-08] MEDS: LISINOPRIL 10 MG TAB PO (08:44)
[2018-02-08] MEDS: DOCUSATE SODIUM 250 MG CAP PO (08:44)
[2018-02-08] MEDS: SOLIFENACIN 5 MG TAB PO (08:44)
[2018-02-08] MEDS: ATENOLOL 50 MG TAB PO (08:44)
[2018-02-08] MEDS: ENOXAPARIN 30 MG/0.3 ML SYG SC (08:48)
[2018-02-08 09:20] LABS: ADD MAN DIFF? NO
[2018-02-08 09:33] LABS: BASOPHIL # 0.1 10^3/ul (0.0-0.1); BASOPHILS % 0.9 % (0.0-2.0); EOSINOPHILS # 0.1 10^3/ul (0.0-0.5); EOSINOPHILS % 1.5 % (0.0-7.0); HEMATOCRIT 32.4 % (37.0-47.0); HEMOGLOBIN 10.1 g/dl (12.0-16.0); LYMPHOCYTES # 1.4 10^3/ul (0.8-2.9); LYMPHOCYTES % 20.7 % (15.0-51.0); MEAN CORPUSCULAR HEMOGLOBIN 27.7 pg (29.0-33.0); MEAN CORPUSCULAR HGB CONC 31.2 g/dl (32.0-37.0); MEAN PLATELET VOLUME 10.1 fl (7.4-10.4); MONOCYTE # 0.4 10^3/ul (0.3-0.9); MONOCYTES % 6.6 % (0.0-11.0); NEUTROPHIL # 4.7 10^3/ul (1.6-7.5); NEUTROPHILS % 69.8 % (39.0-77.0); PLATELET COUNT 478 10^3/UL (140-415); RED BLOOD COUNT 3.64 10^6/ul (4.20-5.40); RED CELL DISTRIBUTION WIDTH 13.1 % (11.5-14.5)
[2018-02-08 09:33] LABS: WHITE BLOOD COUNT 6.7 10^3/ul (4.8-10.8)
[2018-02-08 09:52] LABS: ALANINE AMINOTRANSFERASE 138 IU/L (13-69); ALBUMIN 3.8 g/dl (3.3-4.9); ALBUMIN/GLOBULIN RATIO 1.31; ALKALINE PHOSPHATASE 129 IU/L (42-121); ANION GAP 16 (8-16); ASPARTATE AMINO TRANSFERASE 62 IU/L (15-46); BILIRUBIN,INDIRECT 0.2 mg/dl (0-1.1); BILIRUBIN,TOTAL 0.2 mg/dl (0.2-1.3); BLOOD UREA NITROGEN 15 mg/dl (7-20); CALCIUM 9.1 mg/dl (8.4-10.2); CARBON DIOXIDE 27 mmol/L (21-31); CHLORIDE 104 mmol/L (97-110); CREATININE 1.21 mg/dl (0.44-1.00); GLUCOSE 130 mg/dl (70-220); POTASSIUM 3.7 mmol/L (3.5-5.1); SODIUM 143 mmol/L (135-144); TOTAL PROTEIN 6.7 g/dl (6.1-8.1)
== END 2018-02-08 15:20 | disposition home or self-care (01) | DRG 871 ==
LOC: E/R 12:59 → MS4 16:24
DX: A41.9 Sepsis, unspecified organism (principal); J18.9 Pneumonia, unspecified organism; G93.41 Metabolic encephalopathy; N39.0 Urinary tract infection, site not specified; E87.2 Acidosis; F33.3 Major depressive disorder, recurrent, severe with psychotic symptoms; F05 Delirium due to known physiological condition; E86.0 Dehydration; F03.90 Unspecified dementia, unspecified severity, without behavioral disturbance, psychotic disturbance, mood disturbance, and anxiety; I10 Essential (primary) hypertension; M47.816 Spondylosis without myelopathy or radiculopathy, lumbar region; Z96.643 Presence of artificial hip joint, bilateral; Z96.653 Presence of artificial knee joint, bilateral
CPT/HCPCS: 36415; 71045; 76705; 80048; 80053; 80307; 81001; 82140; 82150; 82962; 83605; 83690; 83735; 84484; 85025; 87040; 87086; 93005; 93970; 96374; 96375; 97110; 97116; 97162; 97530; 99291-25

== ENCOUNTER 2018-04-10 19:59 | Inpatient (IN) | payer MEDICARE, OTHER ==
[2018-04-10] MEDS: ONDANSETRON 4 MG INJ IV (20:35)
[2018-04-10] MEDS: SOD CHLORIDE 0.9% 1,000 ML IV (20:35)
[2018-04-10] MEDS: HYDROmorphONE 0.5 MG/0.5 ML SYG IV (20:36)
[2018-04-10 20:44] LABS: ADD MAN DIFF? NO
[2018-04-10 20:50] LABS: WHITE BLOOD COUNT 9.6 10^3/ul (4.8-10.8)
[2018-04-10 20:50] LABS: BASOPHILS % 0.3 % (0.0-2.0); EOSINOPHILS # 0.1 10^3/ul (0.0-0.5); EOSINOPHILS % 0.7 % (0.0-7.0); HEMATOCRIT 31.6 % (37.0-47.0); HEMOGLOBIN 10.2 g/dl (12.0-16.0); LYMPHOCYTES # 1.2 10^3/ul (0.8-2.9); LYMPHOCYTES % 12.6 % (15.0-51.0); MEAN CORPUSCULAR HGB CONC 32.3 g/dl (32.0-37.0); MEAN CORPUSCULAR VOLUME 86.8 fl (82.0-101.0); MEAN PLATELET VOLUME 10.4 fl (7.4-10.4); MONOCYTES % 10.6 % (0.0-11.0); NEUTROPHIL # 7.2 10^3/ul (1.6-7.5); NEUTROPHILS % 74.9 % (39.0-77.0); PLATELET COUNT 300 10^3/UL (140-415); RED BLOOD COUNT 3.64 10^6/ul (4.20-5.40); RED CELL DISTRIBUTION WIDTH 13.6 % (11.5-14.5)
[2018-04-10 21:10] LABS: ANION GAP 11 (8-16); BLOOD UREA NITROGEN 10 mg/dl (7-20); CALCIUM 9.6 mg/dl (8.4-10.2); CARBON DIOXIDE 23 mmol/L (21-31); CHLORIDE 115 mmol/L (97-110); CREATININE 0.99 mg/dl (0.44-1.00); GLUCOSE 92 mg/dl (70-220); POTASSIUM 3.4 mmol/L (3.5-5.1); SODIUM 146 mmol/L (135-144)
[2018-04-10 21:23] LABS: B-TYPE NATRIURETIC PEPTIDE 11000 PG/ML (0-450); TROPONIN-I < 0.012 ng/ml (0.000-0.120)
[2018-04-10] MEDS ORDERED: ONDANSETRON 4 MG INJ IV ×2 (22:00→23:00)
[2018-04-10] MEDS: FUROSEMIDE 40 MG INJ IV (22:15)
[2018-04-10] MEDS: ALBUTEROL 0.083% (NEB) 2.5 MG/3 ML AMP NEB (22:19)
[2018-04-10] MEDS: IPRATROPIUM (NEB) 0.5 MG/2.5 ML AMP NEB (22:19)
[2018-04-10] MEDS ORDERED: ACETAMINOPHEN 325 MG TAB PO (23:00)
[2018-04-11] MEDS: ACETAMINOPHEN 325 MG TAB PO (01:27)
[2018-04-11 02:35] LABS: CREATINE KINASE 42 IU/L (23-200)
[2018-04-11 02:48] LABS: CK INDEX 0.6; CK-MB 0.24 ng/ml (0.0-2.4); TROPONIN-I < 0.012 ng/ml (0.000-0.120)
[2018-04-11] MEDS: PANTOPRAZOLE (EC) 40 MG TAB PO (06:35)
[2018-04-11 08:22] LABS: AADO2 Arterial 42.9 mmHg (7.0-24.0); Allen Test ACCEPTAB; Arterial Base Excess 1.2 mmol/L (-3.0-3); Arterial Blood Gas Oxygen Sat 90.1 mmHG (95.0-100.0); Arterial COHb 0.3 % (0.0-3.0); Arterial Fraction of Oxyhgb 89.6 % (93.0-99.0); Arterial HCO3 25.5 mmol/L (22.0-26.0); Arterial MetHb 0.3 % (0.0-1.5); Arterial Total Hemglobin 9.5 g/dl (12.0-18.0); Arterial pCO2 39.1 mmhg (35-45); MODE ROOM AIR; Site Right Radial
[2018-04-11] MEDS: SERTRALINE 50 MG TAB PO (08:42)
[2018-04-11] MEDS: DOCUSATE SODIUM 250 MG CAP PO ×2 (08:42→20:35)
[2018-04-11] MEDS: LISINOPRIL 10 MG TAB PO (08:42)
[2018-04-11] MEDS: DIVALPROEX (EC) 125 MG TAB PO ×2 (08:42→20:34)
[2018-04-11 09:34] LABS: CREATINE KINASE 33 IU/L (23-200)
[2018-04-11 09:45] LABS: CK INDEX 0.7; CK-MB 0.23 ng/ml (0.0-2.4); TROPONIN-I < 0.012 ng/ml (0.000-0.120)
[2018-04-11 14:26] LABS: ANION GAP 9 (8-16); BLOOD UREA NITROGEN 13 mg/dl (7-20); CALCIUM 9.1 mg/dl (8.4-10.2); CARBON DIOXIDE 29 mmol/L (21-31); CHLORIDE 111 mmol/L (97-110); CREATININE 0.99 mg/dl (0.44-1.00); GLUCOSE 100 mg/dl (70-220); MAGNESIUM 1.8 mg/dl (1.7-2.5); POTASSIUM 4.1 mmol/L (3.5-5.1); SODIUM 145 mmol/L (135-144)
[2018-04-11] MEDS: ALBUTEROL/IPRATROPIUM (NEB) 3 ML AMP HHN (14:36)
[2018-04-11] MEDS: OLANZAPINE 5 MG TAB PO (20:35)
[2018-04-12] MEDS: PANTOPRAZOLE (EC) 40 MG TAB PO (06:01)
[2018-04-12 06:15] LABS: ADD MAN DIFF? NO
[2018-04-12 06:35] LABS: WHITE BLOOD COUNT 6.5 10^3/ul (4.8-10.8)
[2018-04-12 06:35] LABS: BASOPHILS % 0.5 % (0.0-2.0); EOSINOPHILS # 0.2 10^3/ul (0.0-0.5); EOSINOPHILS % 3.3 % (0.0-7.0); HEMATOCRIT 28.2 % (37.0-47.0); HEMOGLOBIN 9.1 g/dl (12.0-16.0); LYMPHOCYTES # 1.9 10^3/ul (0.8-2.9); LYMPHOCYTES % 28.9 % (15.0-51.0); MEAN CORPUSCULAR HEMOGLOBIN 28.3 pg (29.0-33.0); MEAN CORPUSCULAR HGB CONC 32.3 g/dl (32.0-37.0); MEAN CORPUSCULAR VOLUME 87.6 fl (82.0-101.0); MEAN PLATELET VOLUME 10.5 fl (7.4-10.4); MONOCYTE # 0.8 10^3/ul (0.3-0.9); NEUTROPHIL # 3.5 10^3/ul (1.6-7.5); NEUTROPHILS % 53.7 % (39.0-77.0); PLATELET COUNT 271 10^3/UL (140-415); RED BLOOD COUNT 3.22 10^6/ul (4.20-5.40); RED CELL DISTRIBUTION WIDTH 13.8 % (11.5-14.5)
[2018-04-12 06:41] LABS: MAGNESIUM 1.8 mg/dl (1.7-2.5)
[2018-04-12 06:56] LABS: ANION GAP 7 (8-16); BLOOD UREA NITROGEN 15 mg/dl (7-20); CALCIUM 8.5 mg/dl (8.4-10.2); CARBON DIOXIDE 28 mmol/L (21-31); CHLORIDE 111 mmol/L (97-110); CREATININE 0.93 mg/dl (0.44-1.00); GLUCOSE 100 mg/dl (70-220); POTASSIUM 3.4 mmol/L (3.5-5.1); SODIUM 143 mmol/L (135-144)
[2018-04-12] MEDS: DOCUSATE SODIUM 250 MG CAP PO (08:14)
[2018-04-12] MEDS: DIVALPROEX (EC) 125 MG TAB PO (08:14)
[2018-04-12] MEDS: LISINOPRIL 10 MG TAB PO (08:14)
[2018-04-12] MEDS: ENOXAPARIN 40 MG/0.4 ML SYG SC (08:19)
[2018-04-12] MEDS: POTASSIUM CHLORIDE (SR) 20 MEQ TAB PO (12:20)
[2018-04-12] MEDS: FUROSEMIDE 20 MG INJ IV (14:40)
== END 2018-04-12 17:50 | disposition home health service (06) | DRG 101 ==
LOC: E/R 19:59 → 6WM 23:24
DX: G40.909 Epilepsy, unspecified, not intractable, without status epilepticus (principal); F32.3 Major depressive disorder, single episode, severe with psychotic features; F02.81 Dementia in other diseases classified elsewhere, unspecified severity, with behavioral disturbance; J21.9 Acute bronchiolitis, unspecified; G30.9 Alzheimer's disease, unspecified; F06.8 Other specified mental disorders due to known physiological condition; I10 Essential (primary) hypertension; R06.89 Other abnormalities of breathing
CPT/HCPCS: 36415; 36600; 70544; 70553; 71045; 71250; 80048; 82550; 82553; 82803; 83735; 83880; 84484; 85025; 93005; 93306; 94664; 96374; 96375; 97161; 99285-25